=== PATIENT | male | born 1990 ===

== ENCOUNTER 2018-12-24 16:44 | Emergency (ER) | payer OTHER ==
[2018-12-24 17:14] VITALS: BMI 26.4
[2018-12-24 18:08] VITALS: BP 118/75; PULSE 88; RESP 18; TEMP 98.6; O2SAT 99
--- NOTE | 2018-12-24 18:46 | C.PDOC ---
History Of Present Illness 28 year old male, with no significant past medical history, presents to the ED for evaluation of flu-like symptoms which began around two weeks ago. Patient complains of generalized body aches, runny nose, nasal congestion, and cough. Patient has been taking DayQuil without relief. Patient denies nausea, vomiting, diarrhea. Chief Complaint (Nursing): Flu-like Symptoms History Per: Patient History/Exam Limitations: no limitations Onset/Duration Of Symptoms: Other (two weeks ) Current Symptoms Are (Timing): Still Present Location Of Pain: Diffuse Myalgias Associated Symptoms: Fever, Cough, Nasal Congestion, Other (runny nose ). denies: Nausea, Vomiting, Diarrhea Additional History Per: Patient Past Medical History Reviewed: Historical Data, Nursing Documentation, Vital Signs Vital Signs: Last Vital Signs Temp 98.6 F 12/24/18 17:27 Pulse 88 12/24/18 17:27 Resp 18 12/24/18 17:27 BP 118/75 12/24/18 17:27 Pulse Ox 99 12/24/18 17:27 - Medical History PMH: No Chronic Diseases Surgical History: No Surg Hx Family History: States: Unknown Family Hx - Social History Hx Alcohol Use: Yes Hx Substance Use: No - Immunization History Hx Tetanus Toxoid Vaccination: No Hx Influenza Vaccination: No Hx Pneumococcal Vaccination: No Review Of Systems Constitutional: Negative for: Fever, Chills, Weakness ENT: Positive for: Nose Discharge, Nose Congestion Cardiovascular: Negative for: Chest Pain Respiratory: Positive for: Cough. Negative for: Shortness of Breath Gastrointestinal: Negative for: Nausea, Vomiting, Diarrhea Genitourinary: Negative for: Dysuria, Frequency, Hematuria Musculoskeletal: Positive for: Other (generalized body aches ) Skin: Negative for: Rash Neurological: Negative for: Weakness, Numbness, Dizziness Physical Exam - Physical Exam Appears: Well, Non-toxic, No Acute Distress Skin: Normal Color, Warm, No Rash Head: Atraumatic, Normacephalic Eye(s): bilateral: Normal Inspection (no scleral icterus ), PERRL, EOMI Ear(s): Bilateral: Normal (no drainage ) Nose: Other (rhinorrhea ) Oral Mucosa: Moist Throat: Normal (no swelling or injection ), No Erythema, No Exudate, Other (airway patent ) Neck: Normal ROM, Supple Chest: Symmetrical, No Deformity Respiratory: No Accessory Muscle Use, Other (normal inspiratory effort ) Back: Other (ambulatory with steady upright gait) Extremity: Normal ROM Extremity: Bilateral: Atraumatic Neurological/Psych: Oriented x3, Normal Cranial Nerves (grossly intact ) ED Course And Treatment O2 Sat by Pulse Oximetry: 99 (on RA) Pulse Ox Interpretation: Normal Medical Decision Making Medical Decision Making: Progress: Flu swab ordered and reviewed. Disposition Counseled Patient/Family Regarding: Studies Performed, Diagnosis, Need For Followup, Rx Given - Disposition Disposition: HOME/ ROUTINE Disposition Time: 19:17 Condition: STABLE Prescriptions: Cetirizine HCl/Pseudoephedrine [Zyrtec-D Tablet] 1 each PO DAILY #14 tab.er.12h Ibuprofen [Motrin Tab] 800 mg PO TID PRN #21 tab PRN Reason: Pain, Moderate (4-7) Instructions: Viral Upper Respiratory Infection, Adult (DC) Forms: Gen Discharge Inst Nigerian, [employer] (Nigerian), Work Excuse Print Language: INDONESIAN - Clinical Impression Clinical Impression: Influenza-like illness - PA / [employer] / Resident Statement MD/DO has reviewed & agrees with the documentation as recorded. - Scribe Statement The provider has reviewed the documentation as recorded by the Scribe (Tika Ardon) All medical record entries made by the Scribe were at my direction and personally dictated by me. I have reviewed the chart and agree that the record accurately reflects my personal performance of the history, physical exam, medical decision making, and the department course for this patient. I have also personally directed, reviewed, and agree with the discharge instructions and disposition.
== END 2018-12-24 19:30 | disposition home or self-care (01) ==
LOC: C.ER 16:44
DX: J11.1 Influenza due to unidentified influenza virus with other respiratory manifestations (principal)